=== PATIENT | male | born 1955 | race Caucasian/White ===

== ENCOUNTER → 2016-10-03 | Day surgery (SDC) | payer BC ==
[~2016-10-03] MED LIST: APREPITANT 40 MG CAP ONE; CARV12.5 PO; GENTAMICIN SULFATE 80 MG/2 ML VIAL ONE; IOHEXOL 180 MG/ML 20 ML VIAL (for RAD DIAG) ONE; LACTATED RINGER'S 1000 ML INJ 1,000 ML ONE; OMEP20CA5 PO; ONDANSETRON HCL 4 MG/2 ML VIAL IV PUSH ONE; OXYC-360 PO; PROPOFOL 100 MG/10 ML INJ IV ONE; SODIUM CHLORIDE 0.9% INJ 10 ML ONE; SODIUM CHLORIDE 0.9% SOLN 100 ML (PAB) BAG IV ONE; Z.0.NO CURRENT MEDS
--- NOTE | 2016-10-03 16:40 | TN ---
cc: ZOHREH HAYDEN M.D. DATE OF SURGERY 10/03/2016 PREOPERATIVE DIAGNOSIS 1. Proximal left ureteral cath calculus with obstruction (N20.1). POSTOPERATIVE DIAGNOSIS 1. Proximal left ureteral cath calculus with obstruction (ICD-10 code of N20.1). 2. Bladder tumor (ICD-10 code of D41.4). PROCEDURE 1. Transurethral resection of bladder tumor (TURBT) (CPT code 46181). 2. Cystourethroscopy with left retrograde pyelogram and left ureteral stent placement (6-Pakistani x 24 cm) (CPT code 02503). INDICATIONS Mr. Zambrano is a 60-year-old gentleman with intractable pain due to an 11 mm proximal left ureteral calculus with hydronephrosis who presents now for stent placement prior to definitive treatment. FINDINGS Normal anterior urethra. The prostatic urethra shows trilobar hyperplasia with an elevated and obstructing bladder neck with moderate obstruction. The ureteral orifice is normal size, shape and position effluxing clear urine bilaterally. Just lateral to the left ureteral orifice in the area with the trigone and the lateral wall meet there is a frondular papillary tumor approximately a centimeter in diameter with what appears to be located from a single stalk. The remainder of the bladder shows some mild trabeculation but no additional tumors, no stones. No abnormal mucosa. The prostate is quite friable and very vascular. No other abnormalities noted. PROCEDURE AND FINDINGS The procedure as well as the risks and benefits were explained to the patient. Informed consent was obtained. The patient was taken to the major operative theater where he was placed in supine position. The patient was identified as well as the operative site. A universal time-out was performed in standard fashion. At this time general anesthetic and prophylactic intravenous antibiotics consisting of gentamicin 80 milligrams was administered. After adequate anesthetic he was placed in low dorsolithotomy position, prepped and draped in the usual sterile fashion. At this time a 22.5 Pakistani cystoscope with a 30 degree lens was inserted into the urethra and bladder. The 30 degree lens was exchanged for the 70 degree lens. The entire bladder was systematically surveyed with the above findings. Photo documentation was obtained as well as a fluoroscopic picture of a radiopaque stone in the area of the proximal ureter. At this time attention was directed to the left ureteral orifice where a cone-tip catheter was used to attempt to cannulate the ureteral orifice; however, the ureteral orifice was somewhat small in size and there was some difficulty cannulating. A decision was made to use an open-ended catheter with the help of a 0.035 inch hybrid wire. We are able to get into the ureter easily and then the guidewire was removed and radiopaque diluted contrast was injected through the open-ended catheter and there appeared to be evidence of an obstructing radiopaque stone in the proximal ureter approximately a centimeter in diameter and hydroureter nephrosis proximal to this area. The guidewire was placed all the way up to the stone, actually, the stone could be moved somewhat. At this time after again confirming the findings the guidewire was placed through the open-ended catheter and curled easily in the upper pole of the kidney. The catheter was removed leaving that guidewire in place, over the guidewire a 6-Pakistani x 24 cm double-J ureteral stent was placed with the help of a pusher. When the proximal end could be seen in the upper pole the renal pelvis the guidewire and pusher were removed and then there was a nice curl in the bladder under direct vision. At this time after photo documentation attention was directed to the tumor and using a rigid biopsy forceps the entire tumor was resected and removed including the base of the tumor. A ___ probe was used to fulgurate the tumor site, the base of the tumor and some additional normal looking tissue just adjacent to it. Care was taken not to enter the ureteral orifice which was in close proximity but the stent was clearly in good position. At this time there was some mild bleeding at the prostatic urethra and he had a fairly vascular prostate. The bladder was decompressed, the cystoscope was removed. The patient tolerated the procedure well, emerged ____ without difficulty and transferred to the recovery room in stable condition to be discharged home when criteria is met. The tumors were sent for final pathological evaluation and we will see him next week to plan definitive treatment for the ureteral stone. MD SHAUNA Stoll/RAJANI /3:48 PM /4:13 PM
== END | disposition home or self-care (01) ==
LOC: ESDC 12:41
PROVIDERS: ATTEND Urology
DX: N20.1 Calculus of ureter (principal); D41.4 Neoplasm of uncertain behavior of bladder
CPT/HCPCS: 00910; 00912; 52234; 52332; 76000; 88307; C1769; J1580; J2405; J3010; J7120; J8501; Q9965

== ENCOUNTER → 2016-10-08 | Day surgery (SDC) | payer BC ==
[~2016-10-08] MED LIST changes: -APREPITANT 40 MG CAP ONE; -IOHEXOL 180 MG/ML 20 ML VIAL (for RAD DIAG) ONE; +MIDAZOLAM HCL 2 MG/2 ML VIAL ONE; -PROPOFOL 100 MG/10 ML INJ IV ONE; +PROPOFOL 200 MG/20 ML AMP IV ONE; -SODIUM CHLORIDE 0.9% INJ 10 ML ONE; -SODIUM CHLORIDE 0.9% SOLN 100 ML (PAB) BAG IV ONE
--- NOTE | 2016-10-08 17:27 | TN ---
cc: ZOHREH HAYDEN M.D. DATE OF SURGERY: 10/08/2016 PREOPERATIVE DIAGNOSIS Proximal left ureteral calculus (11 millimeters). (ICD10 N20.1) PREOPERATIVE DIAGNOSIS Left renal calculus (11 millimeters) (ICD10 N20.0) PROCEDURE: Extracorporeal shock wave lithotripsy (ESWL) (CPT code 32486). INDICATIONS: Mr. Zambrano is a 60 year-old gentleman who a few days ago underwent urgent stent placement for an 11 millimeter left ureteropelvic junction calculus and presents now for definitive treatment. FINDINGS: The proximal left ureteral calculus has been pushed back into the mid pole of the left kidney during the process of stent placement a few days ago. DESCRIPTION OF PROCEDURE: The procedure, as well as the risks and benefits were explained to the patient. Informed consent was obtained. The patient was taken to the major operative theater where he was placed in supine position on the [facility] SLX-F2 lithotripsy table. At this time the patient was identified as well as the operative site. [place] time out was performed in a standard fashion. General anesthetic and prophylaxis intravenous antibiotics consisting of gentamicin was administered. After adequate anesthetic, a fluoroscopic C-arm was used to visualize the aforementioned stone which now is located in the renal pelvis. At this time shock heads were engaged and a total of 3000 shocks were administered, at frequency between 90 and 120 hertz at a high power level of approximately 7 with apparent pulverization of the stone. The patient tolerated the procedure well, emerged from anesthetic without difficulty and transferred to the Recovery Room in stable condition, to be discharged home when criteria is met. There were no obvious complications. The patient may require additional endoscopic or extracorporal treatment and pending the results of the KUB to be done in approximately one week. MD SHAUNA Stoll/LORIE /4:29 PM /5:03 PM
== END | disposition home or self-care (01) ==
LOC: ESDC 13:24
PROVIDERS: ATTEND Urology
DX: N20.1 Calculus of ureter (principal)
CPT/HCPCS: 00873; 50590; J1580; J2250; J2405; J3010; J7120